=== PATIENT | female | born 1935 | race Caucasian/White ===

== ENCOUNTER 2020-04-25 18:10 | Emergency (ER) | payer MEDICARE, OTHER ==
[~2020-04-25 18:10] MED LIST: ATORVASTATIN CA40 MG PO; CLARITIN10 MG PO; ELIQUIS 2.5 MG2.5 MG PO; GLUCOTROL 10 MG10 MG PO; MULTIVITAMINS1 EAC2 PO; NORVASC 5 MG TAB5 MG PO; TOPROL XL50 MG PO; TRADJENTA5 MG PO
[2020-04-25 20:10] LABS: HEMOGLOBIN 12.3 gm/dl (12.3-15.3); RED BLOOD COUNT 4.25 M/UL (4.00-5.10); WHITE BLOOD COUNT 11.2 K/UL (4.5-11.0)
[2020-04-25 20:37] LABS: BUN/CREATININE RATIO 18 (0-10)
== END 2020-04-26 01:10 | disposition home or self-care (01) ==
LOC: ER1 18:10
PROVIDERS: Physician Assistant
DX: I12.9 Hypertensive chronic kidney disease with stage 1 through stage 4 chronic kidney disease, or unspecified chronic kidney disease (principal); N18.9 Chronic kidney disease, unspecified; E87.5 Hyperkalemia; E11.22 Type 2 diabetes mellitus with diabetic chronic kidney disease; Z79.84 Long term (current) use of oral hypoglycemic drugs
CPT/HCPCS: 36415; 80048; 80053; 82550; 82553; 83735; 83874; 84484; 85025; 93005; 94640; 94664; 96374; 96375; 99285

== ENCOUNTER 2020-05-19 11:53 | Emergency (ER) | payer MEDICARE, OTHER ==
[2020-05-19 12:34] LABS: HEMOGLOBIN 10.6 gm/dl (12.3-15.3); RED BLOOD COUNT 3.69 M/UL (4.00-5.10); WHITE BLOOD COUNT 8.5 K/UL (4.5-11.0)
== END 2020-05-19 16:04 | disposition home or self-care (01) ==
LOC: ER1 11:53
PROVIDERS: Physician Assistant
DX: E87.5 Hyperkalemia (principal); I12.9 Hypertensive chronic kidney disease with stage 1 through stage 4 chronic kidney disease, or unspecified chronic kidney disease; E11.22 Type 2 diabetes mellitus with diabetic chronic kidney disease; N18.9 Chronic kidney disease, unspecified
CPT/HCPCS: 80048; 85025; 94664; 99283

== ENCOUNTER 2020-12-24 11:07 | Inpatient (IN) | payer MEDICARE, OTHER ==
[~2020-12-24] VITALS: Ht 154.9 cm; Wt 78.1 kg
[~2020-12-24 11:07] MED LIST changes: -ATORVASTATIN CA40 MG PO; -NORVASC 5 MG TAB5 MG PO; -TOPROL XL50 MG PO
[2020-12-24 12:00] LABS: HEMOGLOBIN 9.1 gm/dl (12.3-15.3); RED BLOOD COUNT 3.23 M/UL (4.00-5.10); WHITE BLOOD COUNT 7.8 K/UL (4.5-11.0)
[2020-12-24] MEDS ORDERED: PRAZOSIN HCL1 MG PO (16:03)
[2020-12-24] MEDS ORDERED: LOKELMA10 GM PO (16:04)
[2020-12-24] MEDS ORDERED: TORSEMIDE20 MG PO (16:04)
[2020-12-24] MEDS ORDERED: SODIUM BICARBO650 MG PO (16:05)
[2020-12-24] MEDS ORDERED: FEXOFENADINE H180 MG PO (16:05)
[2020-12-24] MEDS ORDERED: TOPROL XL200 MG PO (20:33)
[2020-12-24] MEDS ORDERED: NORVASC10 MG PO (20:36)
[2020-12-24] MEDS ORDERED: ATORVASTATIN CA40 MG PO (20:38)
[2020-12-25 08:42] LABS: HEMOGLOBIN 8.2 gm/dl (12.3-15.3); RED BLOOD COUNT 2.98 M/UL (4.00-5.10); WHITE BLOOD COUNT 7.7 K/UL (4.5-11.0)
[2020-12-26 02:35] LABS: HEMOGLOBIN 7.8 gm/dl (12.3-15.3); RED BLOOD COUNT 2.77 M/UL (4.00-5.10); WHITE BLOOD COUNT 7.2 K/UL (4.5-11.0)
--- NOTE | 2020-12-26 13:50 | NUR ---
12/26/20 1350 Le[address] floor for dialysis. transferred on portable monitor per public transportation inspector.
--- NOTE | 2020-12-26 17:37 | NUR ---
12/26/20 1730 PT RETURNED FROM DIALYSIS. PT ALERT/ORIENTED X3 AT THIS TIME. PERMA CATH WITH DRESSING CDI, NO BLEEDING NOTED. PT WITH NO COMPLAINTS POST DIALYSIS. DAUGHTER AT [facility].
[2020-12-27 03:06] LABS: HEMOGLOBIN 7.1 gm/dl (12.3-15.3); RED BLOOD COUNT 2.53 M/UL (4.00-5.10)
[2020-12-27 07:11] LABS: HBSAG SCREEN Negative (Negative); HEP B CORE AB, TOT Negative (Negative); HEP C VIRUS AB <0.1 (0.0-0.9)
--- NOTE | 2020-12-27 13:54 | NUR ---
12/27/20 1350 PATIENT TRANSPORTED TO DIALYSIS PER [employer] HELPER. PORTABLE TELE/PULSE OX ON PATIENT. PATIENT ALERT/ORIENTED, NO DISTRESS/NO COMPLAINTS NOTED. REPORT GIVEN TO RAMA (DIALYSIS NURSE(
[2020-12-27 20:14] LABS: HEMOGLOBIN 9.4 gm/dl (12.3-15.3)
[2020-12-28 03:33] LABS: WHITE BLOOD COUNT 7.5 K/UL (4.5-11.0)
[2020-12-28 03:38] LABS: RED BLOOD COUNT 3.16 M/UL (4.00-5.10)
[2020-12-29 06:44] LABS: HEMOGLOBIN 9.7 gm/dl (12.3-15.3); RED BLOOD COUNT 3.41 M/UL (4.00-5.10); WHITE BLOOD COUNT 8.2 K/UL (4.5-11.0)
--- NOTE | 2020-12-29 13:15 | NUR ---
1315: RA SPO2 NOTED AT 95%. AWARE.
[2020-12-29] MEDS ORDERED: DOXYCYCLINE HY100 M2 PO (16:34)
[2020-12-29] MEDS ORDERED: HYDRALAZINE HCL25 MG PO (16:34)
[2020-12-29] MEDS ORDERED: PROTONIX 40 MG40 M1 PO (16:34)
[2020-12-29] MEDS ORDERED: FERROUS SULFAT325 M2 PO (16:34)
[2020-12-29] MEDS ORDERED: LOPRESSOR 25 MG25 MG PO (16:34)
[2020-12-29] MEDS ORDERED: AUGMENTIN 500-500 MG PO (16:34)
[2020-12-29] MEDS ORDERED: DEX4 GLUCOSE4 GM PO ×2 (16:48→16:50)
[2020-12-29] MEDS ORDERED: LACTINEX TABLET1 EA PO (17:17)
--- NOTE | 2020-12-29 18:26 | NUR ---
1824: RN FROM [facility] RETURNED CALL AND STATED THIS PATIENT WOULD BE A RESUMPTION OF CARE, HOWEVER, NOTHING HAD BEEN FAXED TO THEIR OFFICE. RN LEFT MESSAGE FOR CM TO FAX INFO ON THURSDAY.
[2021-01-01 05:11] LABS: HBSAG SCREEN Negative (Negative); HEP A AB, IGM Negative (Negative); HEP B CORE AB, IGM Negative (Negative); HEP C VIRUS AB <0.1 (0.0-0.9)
== END 2020-12-29 19:36 | disposition home or self-care (01) | DRG 291 ==
LOC: ER1 11:07 → PROG CARE 15:15 → CDU 15:15 → PROG CARE 17:48 → MED SURG 4 12-29 00:38
PROVIDERS: Internal Medicine Nephrology; Student in an Organized Health Care Education/Training Program; ADMIT Internal Medicine
PROC: 0JH63XZ Insertion of Tunneled Vascular Access Device into Chest Subcutaneous Tissue and Fascia, Percutaneous Approach (ICD-10-PCS; 2020-12-26)
PROC: 02HV33Z Insertion of Infusion Device into Superior Vena Cava, Percutaneous Approach (ICD-10-PCS; 2020-12-26)
PROC: B5181ZA Fluoroscopy of Superior Vena Cava using Low Osmolar Contrast, Guidance (ICD-10-PCS; 2020-12-26)
PROC: 5A1D70Z Performance of Urinary Filtration, Intermittent, Less than 6 Hours Per Day (ICD-10-PCS; 2020-12-26)
PROC: B24BZZ4 Ultrasonography of Heart with Aorta, Transesophageal (ICD-10-PCS; principal; 2020-12-27)
PROC: 5A1D70Z Performance of Urinary Filtration, Intermittent, Less than 6 Hours Per Day (ICD-10-PCS; 2020-12-27)
PROC: 30233N1 Transfusion of Nonautologous Red Blood Cells into Peripheral Vein, Percutaneous Approach (ICD-10-PCS; 2020-12-27)
PROC: 5A1D70Z Performance of Urinary Filtration, Intermittent, Less than 6 Hours Per Day (ICD-10-PCS; 2020-12-29)
DX: I13.2 Hypertensive heart and chronic kidney disease with heart failure and with stage 5 chronic kidney disease, or end stage renal disease (principal); N18.6 End stage renal disease; Z20.822 Contact with and (suspected) exposure to COVID-19; J15.9 Unspecified bacterial pneumonia; J96.21 Acute and chronic respiratory failure with hypoxia; N17.9 Acute kidney failure, unspecified; E87.3 Alkalosis; I12.0 Hypertensive chronic kidney disease with stage 5 chronic kidney disease or end stage renal disease; Z96.643 Presence of artificial hip joint, bilateral; I11.0 Hypertensive heart disease with heart failure; E78.5 Hyperlipidemia, unspecified; E11.22 Type 2 diabetes mellitus with diabetic chronic kidney disease; D63.1 Anemia in chronic kidney disease; I08.1 Rheumatic disorders of both mitral and tricuspid valves; D50.9 Iron deficiency anemia, unspecified; T50.995A Adverse effect of other drugs, medicaments and biological substances, initial encounter; E87.6 Hypokalemia; Z79.01 Long term (current) use of anticoagulants; Z79.82 Long term (current) use of aspirin; Z79.4 Long term (current) use of insulin; Z88.0 Allergy status to penicillin; Z87.440 Personal history of urinary (tract) infections
CPT/HCPCS: ECHO; 36415; 36430; 71045; 71046; 77001; 80053; 80074; 82550; 82553; 82962; 83540; 83550; 83605; 83735; 83880; 84132; 84439; 84443; 84484; 85014; 85018; 85025; 85027; 85610; 86704; 86706; 86708; 86803; 86850; 86900; 86901; 86920; 87340; 89050; 90935; 90937; 93005; 93306; 94760; 99285; C1750; C1752; C1769; J0360; J0696; J1100; J1642; J1644; J1756; J2001; J2370; J2405; J2704; J7040; J7120; P9016; U0002

== ENCOUNTER → 2021-01-29 | Outpatient (CLI) | payer MEDICARE, OTHER ==
[~2021-01-29] VITALS: Ht 160 cm; Wt 59.9 kg
[~2021-01-29] MED LIST changes: +ATORVASTATIN CA40 MG PO; +AUGMENTIN 500-500 MG PO; +DEX4 GLUCOSE4 GM PO; +DOXYCYCLINE HY100 M2 PO; +FERROUS SULFAT325 M2 PO; +FEXOFENADINE H180 MG PO; +HYDRALAZINE HCL25 MG PO; +LACTINEX TABLET1 EA PO; +LOKELMA10 GM PO; +LOPRESSOR 25 MG25 MG PO; +NORVASC10 MG PO; +PRAZOSIN HCL1 MG PO; +PROTONIX 40 MG40 M1 PO; +SODIUM BICARBO650 MG PO; +TOPROL XL200 MG PO; +TORSEMIDE20 MG PO
== END ==
LOC: EROP 12:45
DX: Z20.822 Contact with and (suspected) exposure to COVID-19 (principal)
CPT/HCPCS: 96365

== ENCOUNTER 2021-02-08 06:04 | Emergency (ER) | payer MEDICARE, OTHER | END 2021-02-08 09:55 | disposition home or self-care (01) | LOC: ER1 06:04 | DX: M43.6 Torticollis (principal); I12.9 Hypertensive chronic kidney disease with stage 1 through stage 4 chronic kidney disease, or unspecified chronic kidney disease; N18.9 Chronic kidney disease, unspecified; E11.22 Type 2 diabetes mellitus with diabetic chronic kidney disease | CPT/HCPCS: 72125; 99283 ==

== ENCOUNTER 2021-02-17 10:01 | Emergency (ER) | payer MEDICARE, OTHER ==
[2021-02-17 12:53] LABS: HEMOGLOBIN 10.9 gm/dl (12.3-15.3); RED BLOOD COUNT 3.88 M/UL (4.00-5.10); WHITE BLOOD COUNT 7.2 K/UL (4.5-11.0)
[2021-02-17] MEDS ORDERED: ZOFRAN ODT 4 MG4 MG PO (16:39)
== END 2021-02-17 16:48 | disposition home or self-care (01) ==
LOC: ER1 10:01
PROVIDERS: Physician Assistant
DX: U07.1 COVID-19 (principal); E87.6 Hypokalemia; N18.6 End stage renal disease; I13.2 Hypertensive heart and chronic kidney disease with heart failure and with stage 5 chronic kidney disease, or end stage renal disease; E11.22 Type 2 diabetes mellitus with diabetic chronic kidney disease; I50.30 Unspecified diastolic (congestive) heart failure; E78.5 Hyperlipidemia, unspecified; Z99.2 Dependence on renal dialysis
CPT/HCPCS: 71045; 80053; 81001; 82550; 82553; 83874; 84132; 84484; 85025; 93005; 96374; 96375; 99284; J2405; U0002

== ENCOUNTER → 2021-04-05 | Outpatient (CLI) | payer MEDICARE, OTHER ==
[~2021-04-05] MED LIST changes: +ZOFRAN ODT 4 MG4 MG PO
== END ==
LOC: EMI 13:36
DX: M50.30 Other cervical disc degeneration, unspecified cervical region (principal)
CPT/HCPCS: 72141

== ENCOUNTER 2021-04-11 16:42 | Observation (INO) | payer MEDICARE, OTHER ==
[~2021-04-11] VITALS: Ht 160 cm; Wt 58.1 kg
[~2021-04-11 16:42] MED LIST changes: -ACETAMINOPHEN500 MG PO
[2021-04-11 17:57] LABS: HEMOGLOBIN 11.3 gm/dl (12.3-15.3); RED BLOOD COUNT 3.89 M/UL (4.00-5.10)
[2021-04-11 18:04] LABS: WHITE BLOOD COUNT 8.8 K/UL (4.5-11.0)
[2021-04-11] MEDS ORDERED: ACETAMINOPHEN500 MG PO (23:29)
[2021-04-12 05:51] LABS: HEMOGLOBIN 10.3 gm/dl (12.3-15.3); RED BLOOD COUNT 3.52 M/UL (4.00-5.10); WHITE BLOOD COUNT 8.2 K/UL (4.5-11.0)
== END 2021-04-12 20:20 | disposition home or self-care (01) ==
LOC: ER1 16:42 → 3 EAST 18:07 → CDU 18:07 → 3 EAST 18:07
PROVIDERS: Preventive Medicine Occupational Medicine; ADMIT Family Medicine
DX: M50.31 Other cervical disc degeneration, high cervical region (principal); M48.02 Spinal stenosis, cervical region; I12.0 Hypertensive chronic kidney disease with stage 5 chronic kidney disease or end stage renal disease; E11.22 Type 2 diabetes mellitus with diabetic chronic kidney disease; N18.6 End stage renal disease; M19.90 Unspecified osteoarthritis, unspecified site; Z99.2 Dependence on renal dialysis; Z79.84 Long term (current) use of oral hypoglycemic drugs; Z79.899 Other long term (current) drug therapy; Z20.822 Contact with and (suspected) exposure to COVID-19
CPT/HCPCS: 36415; 80048; 80053; 80202; 82962; 83605; 85025; 85027; 85652; 86140; 87040; 90935; 96372; 96374; 96375; 99285; G0378; J0696; J1644; J2405; J3370; J7030; J7070; U0002

== ENCOUNTER → 2021-04-11 | Outpatient (CLI) | payer MEDICARE, OTHER ==
[~2021-04-11] MED LIST changes: +ACETAMINOPHEN500 MG PO
== END ==
LOC: KOH-I 08:00
DX: M80.08XD Age-related osteoporosis with current pathological fracture, vertebra(e), subsequent encounter for fracture with routine healing (principal); M50.30 Other cervical disc degeneration, unspecified cervical region; M25.78 Osteophyte, vertebrae; M40.202 Unspecified kyphosis, cervical region
CPT/HCPCS: 72125

== ENCOUNTER 2021-07-10 10:07 | Emergency (ER) | payer MEDICARE, OTHER ==
[~2021-07-10 10:07] MED LIST changes: +ACETAMINOPHEN500 MG PO
[2021-07-10] MEDS ORDERED: Voltaren Gel 1 % TOP (13:03)
== END 2021-07-10 13:54 | disposition home or self-care (01) ==
LOC: ER1 10:07
DX: M25.552 Pain in left hip (principal); I10 Essential (primary) hypertension; E11.22 Type 2 diabetes mellitus with diabetic chronic kidney disease; N18.9 Chronic kidney disease, unspecified
CPT/HCPCS: 72170; 73552; 99283

== ENCOUNTER 2021-09-16 10:57 | Inpatient (IN) | payer MEDICARE, OTHER ==
[~2021-09-16] VITALS: Ht 160 cm; Wt 57.2 kg
[~2021-09-16 10:57] MED LIST changes: +Voltaren Gel 1 % TOP
[2021-09-16 12:05] LABS: HEMOGLOBIN 11.6 gm/dl (12.3-15.3); RED BLOOD COUNT 4.15 M/UL (4.00-5.10); WHITE BLOOD COUNT 13.2 K/UL (4.5-11.0)
[2021-09-16] MEDS ORDERED: TIZANIDINE HCL4 MG PO (17:03)
[2021-09-16] MEDS ORDERED: STOOL SOFTENER100 MG PO (17:03)
[2021-09-16] MEDS ORDERED: CETIRIZINE HCL10 MG PO (17:04)
[2021-09-17 01:58] LABS: WHITE BLOOD COUNT 12.9 K/UL (4.5-11.0)
[2021-09-17 01:59] LABS: RED BLOOD COUNT 3.47 M/UL (4.00-5.10)
[2021-09-17 02:00] LABS: HEMOGLOBIN 9.5 gm/dl (12.3-15.3)
[2021-09-18 06:28] LABS: HEMOGLOBIN 9.2 gm/dl (12.3-15.3); RED BLOOD COUNT 3.34 M/UL (4.00-5.10)
[2021-09-18 06:29] LABS: WHITE BLOOD COUNT 8.6 K/UL (4.5-11.0)
[2021-09-18 07:11] LABS: HBSAG SCREEN Negative (Negative); HCV AB <0.1 (0.0-0.9); HEP A AB, IGM Negative (Negative); HEP B CORE AB, IGM Negative (Negative)
[2021-09-18] MEDS ORDERED: LEVOFLOXACIN500 MG PO (19:04)
[2021-09-19 06:43] LABS: HEMOGLOBIN 9.2 gm/dl (12.3-15.3); RED BLOOD COUNT 3.37 M/UL (4.00-5.10)
[2021-09-19] MEDS ORDERED: PROAIR HFA8.5 GM INH (09:10)
--- NOTE | 2021-09-19 10:51 | NUR ---
Per blueprint machine operator Monse and Dr. Mckinney, patient will not get dialysis today on 09/19/21 and will resume her M/W/F tomorrow on 09/20/21.
--- NOTE | 2021-09-19 12:58 | NUR ---
dr. Mckinney aware of patient discharge home to, was notified earlier by Vasu MYERS
[2021-09-20 19:53] LABS: CANDIDA ALBICANS Not Detected (Negative); CANDIDA KRUSEI Not Detected (Negative); CANDIDA TROPICALIS Not Detected (Negative); ESCHERICHIA COLI Not Detected (Negative); HAEMOPHILUS INFLUENZAE Not Detected (Negative); KLEBSIELLA OXYTOCA Not Detected (Negative); KLEBSIELLA PNEUMONIAE Not Detected (Negative); KPC-CARBAPENEM-RESISTANCE GENE Not Detected (Negative); PROTEUS Not Detected (Negative); PSEUDOMONAS AERUGINOSA Not Detected (Negative); SERRATIA MARCESANS Not Detected (Negative); STAPHYLOCOCCUS AUREUS Not Detected (Negative); STREP AGALACTIAE (GROUP B) Not Detected (Negative); STREP PYOGENES (GROUP A) Not Detected (Negative); STREPTOCOCCUS Not Detected (Negative); vanA/B (VANCOMYCIN RESIST GENE Not Detected (Negative)
[2021-09-20 22:29] LABS: STAPHYLOCOCCUS DETECTED (Negative)
--- NOTE | 2021-09-20 23:43 | NUR ---
@[id number] notified hospitalist of + BC Result. Dr Lewis stated that PT is on Levaquin and should cover the infection. Will call PT on 09/21/21 to inform her
== END 2021-09-19 12:08 | disposition home or self-care (01) | DRG 871 ==
LOC: ER1 10:57 → CDU 14:19 → MED SURG 4 14:19
PROVIDERS: Internal Medicine; Internal Medicine Nephrology; Physician Assistant; Physician Assistant Medical; ADMIT Internal Medicine
DX: A41.9 Sepsis, unspecified organism (principal); J18.9 Pneumonia, unspecified organism; J69.0 Pneumonitis due to inhalation of food and vomit; J96.01 Acute respiratory failure with hypoxia; N18.6 End stage renal disease; I12.0 Hypertensive chronic kidney disease with stage 5 chronic kidney disease or end stage renal disease; E11.22 Type 2 diabetes mellitus with diabetic chronic kidney disease; E87.6 Hypokalemia; E87.5 Hyperkalemia; Z66 Do not resuscitate; M25.552 Pain in left hip; Z96.642 Presence of left artificial hip joint; E11.40 Type 2 diabetes mellitus with diabetic neuropathy, unspecified; E88.09 Other disorders of plasma-protein metabolism, not elsewhere classified; I27.20 Pulmonary hypertension, unspecified; M54.50 Low back pain, unspecified; G89.29 Other chronic pain; I08.1 Rheumatic disorders of both mitral and tricuspid valves; Z20.822 Contact with and (suspected) exposure to COVID-19; Z99.2 Dependence on renal dialysis; Z98.49 Cataract extraction status, unspecified eye; Z98.890 Other specified postprocedural states; Z82.49 Family history of ischemic heart disease and other diseases of the circulatory system; Z80.42 Family history of malignant neoplasm of prostate; Z79.82 Long term (current) use of aspirin; Z79.899 Other long term (current) drug therapy
CPT/HCPCS: 36415; 71045; 72100; 73502; 80048; 80053; 80074; 81001; 82550; 82553; 82728; 82962; 83540; 83550; 83735; 83880; 84484; 85025; 85027; 87040; 87077; 87086; 87150; 87186; 87205; 90935; 93005; 94640; 94664; 94760; 96372; 96374; 96375; 96376; 97110; 97116; 97162; 97166; 97530; 99285; G0378; J0456; J0696; J1644; J7030; U0002

== ENCOUNTER → 2021-09-20 | Outpatient (CLI) | payer MEDICARE, OTHER, MEDICAID ==
[~2021-09-20] MED LIST changes: +CETIRIZINE HCL10 MG PO; +LEVOFLOXACIN500 MG PO; +PROAIR HFA8.5 GM INH; +STOOL SOFTENER100 MG PO; +TIZANIDINE HCL4 MG PO
== END ==
LOC: EMI 15:43
DX: M54.50 Low back pain, unspecified (principal); M51.36 Other intervertebral disc degeneration, lumbar region
CPT/HCPCS: 72148

== ENCOUNTER 2021-09-21 13:17 | Inpatient (IN) | payer MEDICARE, OTHER ==
[~2021-09-21] VITALS: Ht 160 cm; Wt 58.5 kg
[2021-09-21 14:52] LABS: HEMOGLOBIN 9.3 gm/dl (12.3-15.3); RED BLOOD COUNT 3.39 M/UL (4.00-5.10); WHITE BLOOD COUNT 10.9 K/UL (4.5-11.0)
[2021-09-22 03:56] LABS: HEMOGLOBIN 8.5 gm/dl (12.3-15.3); RED BLOOD COUNT 3.08 M/UL (4.00-5.10); WHITE BLOOD COUNT 9.6 K/UL (4.5-11.0)
[2021-09-23 02:26] LABS: HEMOGLOBIN 8.8 gm/dl (12.3-15.3); RED BLOOD COUNT 3.17 M/UL (4.00-5.10); WHITE BLOOD COUNT 11.5 K/UL (4.5-11.0)
[2021-09-24 03:19] LABS: HEMOGLOBIN 8.8 gm/dl (12.3-15.3); RED BLOOD COUNT 3.21 M/UL (4.00-5.10); WHITE BLOOD COUNT 8.7 K/UL (4.5-11.0)
[2021-09-24] MEDS ORDERED: FORTAZ IV ADV1000 MG IM (09:26)
[2021-09-24] MEDS ORDERED: VANCOMYCIN750 MG/151 IV (09:26)
== END 2021-09-24 16:06 | disposition home or self-care (01) | DRG 551 ==
LOC: ER1 13:17 → M/S 15:00 → CDU 15:00 → M/S 15:00
PROVIDERS: Emergency Medicine; Internal Medicine Infectious Disease; Physician Assistant Medical; ADMIT Internal Medicine
DX: M46.46 Discitis, unspecified, lumbar region (principal); N18.6 End stage renal disease; I12.0 Hypertensive chronic kidney disease with stage 5 chronic kidney disease or end stage renal disease; R78.81 Bacteremia; Z20.822 Contact with and (suspected) exposure to COVID-19; R19.7 Diarrhea, unspecified; D63.1 Anemia in chronic kidney disease; R53.81 Other malaise; I27.20 Pulmonary hypertension, unspecified; B95.7 Other staphylococcus as the cause of diseases classified elsewhere; I07.1 Rheumatic tricuspid insufficiency; E11.22 Type 2 diabetes mellitus with diabetic chronic kidney disease; Z87.01 Personal history of pneumonia (recurrent); Z98.890 Other specified postprocedural states; Z79.4 Long term (current) use of insulin; Z98.42 Cataract extraction status, left eye; Z98.41 Cataract extraction status, right eye; Z99.2 Dependence on renal dialysis
CPT/HCPCS: 36415; 71045; 80048; 80053; 80202; 81001; 82550; 82553; 82962; 83605; 83735; 84484; 85025; 85027; 85652; 86140; 87040; 90937; 96372; 96375; 96376; 97116; 97162; 97166; G0378; J0713; J1650; J2185; J3370; J7070

== ENCOUNTER → 2021-10-14 | Outpatient (CLI) | payer MEDICARE, OTHER ==
[~2021-10-14] MED LIST changes: +FORTAZ IV ADV1000 MG IM; +VANCOMYCIN750 MG/151 IV
== END ==
LOC: LAB 16:14
DX: M46.46 Discitis, unspecified, lumbar region (principal)
CPT/HCPCS: 36415; 85652; 86140

== ENCOUNTER → 2021-11-21 | Outpatient (CLI) | payer MEDICARE, OTHER | LOC: LAB 10:45 | DX: Z86.39 Personal history of other endocrine, nutritional and metabolic disease (principal) | CPT/HCPCS: 85652; 86140 ==

== ENCOUNTER → 2021-12-12 | Outpatient (CLI) | payer MEDICARE, OTHER | LOC: OPSV 12-04 13:00 | DX: J18.9 Pneumonia, unspecified organism (principal) | CPT/HCPCS: G0463 ==